=== PATIENT | male | born 2005 | race Caucasian/White ===

== ENCOUNTER 2025-06-14 17:24 | Emergency (ER) | payer OTHER ==
[2025-06-14] MEDS ORDERED: Ondansetron 4 MG/2 ML SDV ONE (17:40)
[2025-06-14 17:42] LABS: BASOPHILS ABSOLUTE AUTO 0.06 K/uL (0.00-0.10); BASOPHILS PERCENT AUTO 0.6 % (0.1-1.3); EOSINOPHILS ABSOLUTE AUTO 0.21 K/uL (0.00-0.40); EOSINOPHILS PERCENT AUTO 2.2 % (0.0-5.4); IMMATURE GRAN ABSOLUTE AUTO 0.03 K/uL (0.00-0.23); IMMATURE GRAN PERCENT AUTO 0.3 % (0.0-0.7); LYMPHOCYTES ABSOLUTE AUTO 2.72 K/uL (0.8-3.3); LYMPHOCYTES PERCENT AUTO 28.4 % (11.4-47.7); MONOCYTES ABSOLUTE AUTO 0.69 K/uL (0.20-0.90); MONOCYTES PERCENT AUTO 7.2 % (3.3-12.6); NEUTROPHILS ABSOLUTE AUTO 5.87 K/uL (1.0-7.6); NEUTROPHILS PERCENT AUTO 61.3 % (40.0-78.1); PLATELET COUNT,PLT 290 K/uL (130-375); RED BLOOD CELL COUNT 5.02 M/uL (4.14-5.76); WHITE BLOOD CELL COUNT,WBC 9.6 K/uL (3.2-11.0)
[2025-06-14] MEDS: Ondansetron 4 MG/2 ML SDV IVPUSH ONE (17:46)
[2025-06-14] MEDS: Lactated Ringers 1,000 ML IV ONE (17:46)
[2025-06-14 18:03] LABS: A/G RATIO 1.1 (1.2-2.2); ALANINE AMINOTRANSFERASE,ALT 34 U/L (12-78); ASPARTATE AMNIOTRANSFERASE,AST 22 U/L (15-37); BILIRUBIN TOTAL 1.1 mg/dL (0.2-1.0); BLOOD UREA NITROGEN,BUN 14 mg/dL (7-18); CARBON DIOXIDE,CO2 27 mmol/L (21-32); CHLORIDE,CL 101 mmol/L (100-108); CREATINE KINASE,CK 155 U/L (39-308); CREATININE 0.9 mg/dL (0.8-1.3); ESTIMATED GFR 125 mL/min (>60); GLUCOSE RANDOM 91 mg/dL (74-106); POTASSIUM,K 3.4 mmol/L (3.6-5.2); PROTEIN TOTAL,TP 8.9 g/dL (6.4-8.2); SODIUM,NA 140 mmol/L (140-148)
[2025-06-14 18:14] LABS: APPEARANCE,URINE CLEAR (CLEAR); GLUCOSE,URINE NEGATIVE (NEGATIVE); OCCULT BLOOD,URINE NEGATIVE (NEGATIVE)
[2025-06-14] MEDS: LORazepam 2 MG/ML SDV IVPUSH ONE (18:59)
[2025-06-15] MEDS ORDERED: Ondansetron 4 MG Tab.DIS PO PRN (00:09)
[2025-06-15] MEDS ORDERED: Ondansetron 4 MG/2 ML SDV IV PRN (00:09)
[2025-06-15 05:58] LABS: PLATELET COUNT,PLT 246.0 K/uL (130-375); RED BLOOD CELL COUNT 4.55 M/uL (4.14-5.76); WHITE BLOOD CELL COUNT,WBC 8.6 K/uL (3.2-11.0)
[2025-06-15 06:33] LABS: A/G RATIO 1.0 (1.2-2.2); ALANINE AMINOTRANSFERASE,ALT 25 U/L (12-78); ASPARTATE AMNIOTRANSFERASE,AST 18 U/L (15-37); BILIRUBIN TOTAL 0.9 mg/dL (0.2-1.0); BLOOD UREA NITROGEN,BUN 9 mg/dL (7-18); CARBON DIOXIDE,CO2 29 mmol/L (21-32); CHLORIDE,CL 108 mmol/L (100-108); CREATINE KINASE,CK 99 U/L (39-308); CREATININE 0.8 mg/dL (0.8-1.3); EST CRCL DRUG DOSING (CG) 150.82 mL/min; ESTIMATED GFR 129 mL/min (>60); GLUCOSE RANDOM 99 mg/dL (74-106); POTASSIUM,K 4.6 mmol/L (3.6-5.2); PROTEIN TOTAL,TP 6.9 g/dL (6.4-8.2); SODIUM,NA 144 mmol/L (140-148)
== END 2025-06-15 11:40 | disposition home or self-care (01) ==
LOC: JP.ED 17:24 → JP.MS 21:14
PROVIDERS: ADMIT Registered Nurse; ATTEND Student in an Organized Health Care Education/Training Program
DX: T75.4XXA Electrocution, initial encounter (principal)
CPT/HCPCS: 36415; 80053; 81003; 82550; 83605; 84484; 85025; 85027; 93005; 96374; 96375; 99223; 99238; 99285; J2060; J2405; J7030; J7120